=== PATIENT | female | born 1950 | race Caucasian/White ===

== ENCOUNTER 2021-08-28 08:06 | Outpatient (CLI) | payer OTHER | END 2021-08-28 08:12 | disposition home or self-care (01) | LOC: NUCLEAR 08:06 | PROVIDERS: ATTEND Internal Medicine | DX: I87.2 Venous insufficiency (chronic) (peripheral) (principal); L82.1 Other seborrheic keratosis; E55.9 Vitamin D deficiency, unspecified; E78.9 Disorder of lipoprotein metabolism, unspecified; M54.59 Other low back pain; E46 Unspecified protein-calorie malnutrition; E03.9 Hypothyroidism, unspecified; N20.0 Calculus of kidney; K20.90 Esophagitis, unspecified without bleeding ==

== ENCOUNTER 2022-09-24 10:46 | Outpatient (CLI) | payer OTHER | END 2022-09-24 10:53 | disposition home or self-care (01) | LOC: MAMO-SONO 10:46 | PROVIDERS: ATTEND Internal Medicine | DX: Z12.31 Encounter for screening mammogram for malignant neoplasm of breast (principal); N60.11 Diffuse cystic mastopathy of right breast ==